=== PATIENT | male | born 1960 | race Caucasian/White ===

== ENCOUNTER 2017-07-18 12:35 | Emergency (ER) | payer BC, MEDICAID ==
--- NOTE | 2017-07-18 13:07 | EDM.PDOC ---
ED HPI GENERAL MEDICAL PROBLEM - General Chief Complaint: General Stated Complaint: WEAK Time Seen by Provider: 07/18/17 13:05 Source of Information: Reports: Patient History Limitations: Reports: Other (poor historian, no immediate access to records([place] patient)) - History of Present Illness INITIAL COMMENTS - FREE TEXT/NARRATIVE: 56 yo male presents with weakness, dizziness, and heart burn. Was seen in the clinic in [place] on Tuesday and was given an Rx for a PPI that he started on Tuesday. He has not gotten any relief of the heart burn, and now since taking the first dose of the PPI(unknown specific med), he has had the additional sx's. He has continued to take the med since Tuesday even though he has these SE's. Didn't call his clinic before coming here to the ER today. Is new in town from [place]. Denies vertigo. Hospitalized in the past only for pneumonia. Denies smoking, had one alcoholic drink today to "reduce the pain ". 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: Other (see below) (none) throat Pain Score (Numeric/FACES): 0 - Related Data Allergies Allergy/AdvReac Type Severity Reaction Status Date / Time No Known Allergies Allergy Verified 07/18/17 12:37 Home Meds: Home Meds FLUoxetine [PROzac] 40 mg PO DAILY 07/18/17 [History] Lisinopril 20 mg PO DAILY 07/18/17 [History] Minocycline [Minocin] 100 mg DAILY 07/18/17 [History] Naproxen 500 mg PO BID 07/18/17 [History] Omeprazole 20 mg PO DAILY 07/18/17 [History] buPROPion [Wellbutrin XL] 150 mg PO DAILY 07/18/17 [History] ED ROS GENERAL - Review of Systems Review Of Systems: See Below Constitutional: Reports: Malaise, Weakness HEENT: Reports: No Symptoms Respiratory: Reports: Shortness of Breath Cardiovascular: Reports: No Symptoms Endocrine: Reports: Fatigue GI/Abdominal: Reports: No Symptoms : Reports: No Symptoms Musculoskeletal: Reports: No Symptoms Skin: Reports: No Symptoms Psychiatric: Reports: No Symptoms ED EXAM, GENERAL - Physical Exam Exam: See Below Exam Limited By: No Limitations General Appearance: Alert, WD/WN, No Apparent Distress Eye Exam: Bilateral Eye: Normal Inspection, PERRL Ears: Normal External Exam, Normal Canal, Hearing Grossly Normal Ear Exam: Bilateral Ear: Auricle Normal, Canal Normal Nose: Normal Inspection, Normal Mucosa, No Blood Throat/Mouth: Normal Inspection, Normal Lips, Normal Oropharynx, Normal Voice, No Airway Compromise Head: Atraumatic, Normocephalic Neck: Normal Inspection, Supple, Non-Tender Respiratory/Chest: No Respiratory Distress, Lungs Clear, Normal Breath Sounds, No Accessory Muscle Use Cardiovascular: Regular Rate, Rhythm, No Edema GI/Abdominal: Normal Bowel Sounds, Soft, Non-Tender, No Distention Back Exam: Normal Inspection, Full Range of Motion. No: CVA Tenderness (R), CVA Tenderness (L) Extremities: Normal Inspection, Normal Range of Motion, Non-Tender, No Pedal Edema Neurological: Alert, Oriented, CN II-XII Intact, Normal Cognition, No Motor/ Sensory Deficits Psychiatric: Normal Affect, Normal Mood Skin Exam: Warm, Dry, Intact, Normal Color, No Rash Lymphatic: No Adenopathy EKG INTERPRETATION EKG Date: 07/18/17 Time: 12:55 Rhythm: NSR Rate (Beats/Min): 67 [place]: Normal P-Wave: Present QRS: Normal ST-T: Normal QT: Normal Comparison: NA - No Prior EKG Course - Vital Signs Text/Narrative:: Orthostats-negative Last Recorded V/S: Last Vital Signs Temp 36.8 C 07/18/17 12:35 Pulse 87 07/18/17 12:35 Resp 18 07/18/17 12:35 BP 123/81 07/18/17 12:35 Pulse Ox 100 07/18/17 12:35 Orthostatic Blood Pressure [ 117/69 Standing] Orthostatic Blood Pressure [ 122/90 Sitting] Orthostatic Blood Pressure [ 123/79 Supine] - Orders/Labs/Meds Orders: Active Orders 24 hr Category Date Time Status Orthostatic Vital Signs [RC] ASDIRECTED Care 07/18/17 13:16 Active DRUG SCREEN, URINE ALERE [URCHEM] Stat Lab 07/18/17 14:01 Received EKG 12 Lead [EK] Routine Ther 07/18/17 12:54 Ordered Labs: Laboratory Tests 07/18/17 07/18/17 07/18/17 Range/Units 13:30 13:30 13:30 WBC 7.2 (4.5-12.0) X10-3/uL RBC 4.69 (4.30-5.75) x10(6)uL Hgb 15.7 H (11.5-15.5) g/dL Hct 45.3 (30.0-51.3) % MCV 96.6 H (80-96) fL MCH 33.5 (27.7-33.6) pg MCHC 34.6 (32.2-35.4) g/dL RDW 13.6 (11.5-15.5) % Plt Count 271 (125-369) X10(3)uL Sodium 141 (135-145) mmol/L Potassium 4.1 (3.5-5.3) mmol/L Chloride 105 (100-110) mmol/L Carbon Dioxide 28 (23-29) mmol/L BUN 12 (5-20) mg/dL Creatinine 0.8 (0.6-1.3) mg/dL Est Cr Clr Drug Dosing 108.99 mL/min Estimated GFR (MDRD) > 60 (>60) BUN/Creatinine Ratio 15.0 (9-20) Glucose 92 (80-116) mg/dL Calcium 8.8 (8.6-10.2) mg/dL Total Bilirubin 0.4 (0.1-1.3) mg/dL AST 59 H (5-27) IU/L ALT 66 H (14-26) IU/L Alkaline Phosphatase 78 (56-112) IU/L Troponin I < 0.01 L (0.02-0.06) NG/ML Total Protein 7.0 (6.0-8.0) g/dL Albumin 3.7 (3.5-5.2) g/dL Globulin 3.3 g/dL Albumin/Globulin Ratio 1.1 Urine Color (YELLOW) Urine Appearance (CLEAR) Urine pH (5.0-6.5) Ur Specific Pauline (1.010-1.025) Urine Protein (NEGATIVE) mg/dL Urine Glucose (UA) (NEGATIVE) mg/dL Urine Ketones (NEGATIVE) mg/dL Urine Occult Blood (NEGATIVE) Urine Nitrite (NEGATIVE) Urine Bilirubin (NEGATIVE) Urine Urobilinogen (NEGATIVE) mg/dL Ur Leukocyte Esterase (NEGATIVE) Urine RBC (0) Urine WBC (0) Ethyl Alcohol (<0.01) % 07/18/17 07/18/17 Range/Units 13:30 14:01 WBC (4.5-12.0) X10-3/uL RBC (4.30-5.75) x10(6)uL Hgb (11.5-15.5) g/dL Hct (30.0-51.3) % MCV (80-96) fL MCH (27.7-33.6) pg MCHC (32.2-35.4) g/dL RDW (11.5-15.5) % Plt Count (125-369) X10(3)uL Sodium (135-145) mmol/L Potassium (3.5-5.3) mmol/L Chloride (100-110) mmol/L Carbon Dioxide (23-29) mmol/L BUN (5-20) mg/dL Creatinine (0.6-1.3) mg/dL Est Cr Clr Drug Dosing mL/min Estimated GFR (MDRD) (>60) BUN/Creatinine Ratio (9-20) Glucose (80-116) mg/dL Calcium (8.6-10.2) mg/dL Total Bilirubin (0.1-1.3) mg/dL AST (5-27) IU/L ALT (14-26) IU/L Alkaline Phosphatase (56-112) IU/L Troponin I (0.02-0.06) NG/ML Total Protein (6.0-8.0) g/dL Albumin (3.5-5.2) g/dL Globulin g/dL Albumin/Globulin Ratio Urine Color Yellow (YELLOW) Urine Appearance Clear (CLEAR) Urine pH 5.0 (5.0-6.5) Ur Specific Pauline 1.010 (1.010-1.025) Urine Protein Negative (NEGATIVE) mg/dL Urine Glucose (UA) Normal (NEGATIVE) mg/dL Urine Ketones Negative (NEGATIVE) mg/dL Urine Occult Blood Negative (NEGATIVE) Urine Nitrite Negative (NEGATIVE) Urine Bilirubin Negative (NEGATIVE) Urine Urobilinogen Normal (NEGATIVE) mg/dL Ur Leukocyte Esterase Small H (NEGATIVE) Urine RBC Not seen (0) Urine WBC Not seen (0) Ethyl Alcohol 0.32 H* (<0.01) % Meds: Medications Discontinued Medications Generic Name Dose Route Start Last Admin Trade Name Freq PRN Reason Stop Dose Admin Al Hydroxide/Mg Hydroxide 15 0 ml 07/18/17 13:17 07/18/17 14:10 ml/ Lidocaine HCl 15 ml PO 07/18/17 13:18 15 ml ONETIME ONE Administration Departure - Departure Time of Disposition: 14:20 Disposition: Home, Self-Care 01 Condition: Fair Clinical Impression: GERD (gastroesophageal reflux disease) Qualifiers: Esophagitis presence: with esophagitis Qualified Code(s): K21.0 - Gastro- esophageal reflux disease with esophagitis Alcohol intoxication Qualifiers: Complication of substance-induced condition: with unspecified complication Qualified Code(s): F10.929 - Alcohol use, unspecified with intoxication, unspecified Alcoholic hepatitis Qualifiers: Ascites presence: without ascites Qualified Code(s): K70.10 - Alcoholic hepatitis without ascites - Discharge Information Forms: ED Department Discharge - My Orders Last 24 Hours: My Active Orders 07/18/17 12:54 EKG 12 Lead [EK] Routine 07/18/17 13:16 Orthostatic Vital Signs [RC] ASDIRECTED 07/18/17 14:01 DRUG SCREEN, URINE ALERE [URCHEM] Stat - Assessment/Plan Last 24 Hours: My Active Orders 07/18/17 12:54 EKG 12 Lead [EK] Routine 07/18/17 13:16 Orthostatic Vital Signs [RC] ASDIRECTED 07/18/17 14:01 DRUG SCREEN, URINE ALERE [URCHEM] Stat
[2017-07-18] MEDS ORDERED: Alum Hydroxide/Mag Hydroxide 15 ML, Lidocaine 2% 15 ML PO ONE ×2 (13:17)
[2017-07-18 14:37] VITALS: BP 137/88
== END 2017-07-18 14:26 | disposition home or self-care (01) ==
LOC: FB.ED 12:35
DX: K21.9 Gastro-esophageal reflux disease without esophagitis (principal); K70.10 Alcoholic hepatitis without ascites; F10.129 Alcohol abuse with intoxication, unspecified; Z79.899 Other long term (current) drug therapy
CPT/HCPCS: 36415; 80053; 80305; 81001; 84484; 85027; 93005; 99285; A9270; G0480

== ENCOUNTER 2017-11-22 08:18 | Emergency (ER) | payer MEDICAID ==
[2017-11-22] MEDS ORDERED: Amoxicillin/Clavulanate K 875-125 MG Tab PO ONE (08:49)
[2017-11-22] MEDS ORDERED: Ibuprofen 600 MG Tab PO ONE (08:49)
--- NOTE | 2017-11-22 08:51 | EDM.PDOC ---
ED HPI GENERAL MEDICAL PROBLEM - General Chief Complaint: General Stated Complaint: TOOTH PAIN Time Seen by Provider: 11/22/17 08:26 Source of Information: Reports: Patient History Limitations: Reports: No Limitations - History of Present Illness INITIAL COMMENTS - FREE TEXT/NARRATIVE: 56 y.o. w m came to the ed due sever toothache after tooth repair a few days ago. Pt stated his filling fell out, it hurts more when he eats cold or hot food. No direct trauma, no N/V/D or any other acute medical issues. 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 Right Upper Oral/Mouth Pain Score (Numeric/FACES): 9 - Related Data Allergies Allergy/AdvReac Type Severity Reaction Status Date / Time No Known Allergies Allergy Verified 07/18/17 12:37 Home Meds: Home Meds FLUoxetine [PROzac] 40 mg PO DAILY 07/18/17 [History] Lisinopril 20 mg PO DAILY 07/18/17 [History] Minocycline [Minocin] 100 mg DAILY 07/18/17 [History] Omeprazole 20 mg PO DAILY 07/18/17 [History] Amoxicillin/Potassium Clav [Augmentin 875-125 Tablet] 1 each PO BID #20 tablet 11/22/17 [Rx] Past Medical History Cardiovascular History: Reports: High Cholesterol, Hypertension Respiratory History: Reports: Pneumonia, Recurrent Gastrointestinal History: Reports: GERD Musculoskeletal History: Reports: Back Pain, Chronic Psychiatric History: Reports: Depression Endocrine/Metabolic History: Reports: Obesity/BMI 30+ - Past Surgical History GI Surgical History: Reports: Hernia, Abdominal Musculoskeletal Surgical History: Reports: Carpal Tunnel Other Musculoskeletal Surgeries/Procedures:: bilat carpal tunnel surgery Social & Family History - Family History Family Medical History: Noncontributory - Tobacco Use Smoking Status *Q: Current Every Day Smoker Years of Tobacco use: 38 Packs/Tins Daily: 0.4 - Caffeine Use Caffeine Use: Reports: Coffee - Alcohol Use Days Per Week of Alcohol Use: 4 Number of Drinks Per Day: 3 Total Drinks Per Week: 12 - Recreational Drug Use Recreational Drug Use: No ED ROS GENERAL - Review of Systems Review Of Systems: See Below Constitutional: Reports: No Symptoms HEENT: Reports: Other (toothache) Respiratory: Reports: No Symptoms Cardiovascular: Reports: No Symptoms Endocrine: Reports: No Symptoms GI/Abdominal: Reports: No Symptoms : Reports: No Symptoms Musculoskeletal: Reports: No Symptoms Skin: Reports: No Symptoms Neurological: Reports: No Symptoms Psychiatric: Reports: No Symptoms Hematologic/Lymphatic: Reports: No Symptoms Immunologic: Reports: No Symptoms ED EXAM, GENERAL - Physical Exam Exam: See Below Exam Limited By: No Limitations General Appearance: Alert, WD/WN, Mild Distress Eye Exam: Bilateral Eye: Normal Inspection Ears: Normal External Exam, Normal Canal Ear Exam: Bilateral Ear: Auricle Normal Nose: Normal Inspection, Normal Mucosa Throat/Mouth: Normal Lips, No Airway Compromise, Other (poor dentition) Head: Atraumatic, Normocephalic Neck: Normal Inspection, Supple, Non-Tender, Full Range of Motion Respiratory/Chest: No Respiratory Distress, Lungs Clear, Normal Breath Sounds Cardiovascular: Normal Peripheral Pulses, Regular Rate, Rhythm, No Edema, No Gallop Peripheral Pulses: 1+: Radial (R) GI/Abdominal: Normal Bowel Sounds, Soft, Non-Tender, No Organomegaly (Male) Exam: Deferred Rectal (Males) Exam: Deferred Back Exam: Normal Inspection, Full Range of Motion Extremities: Normal Inspection, Normal Range of Motion, Non-Tender Neurological: Alert, Oriented, CN II-XII Intact, Normal Cognition, Normal Gait Psychiatric: Normal Affect, Normal Mood Skin Exam: Warm, Dry, Intact, Normal Color, No Rash Lymphatic: No Adenopathy Course - Vital Signs Text/Narrative:: 56 y.o. w m came to the ed due sever toothache after tooth repair a few days ago. Pt stated his filling fell out, it hurts more when he eats cold or hot food. No direct trauma, no N/V/D or any other acute medical issues. BP 153/91 pulse 103 temp 36.7 RR 16 Pulse ox 97% on RA PE: Poor dentition with #3 tooth decayed. Gingivitis Impression: Poor dentition with #3 tooth decayed. Gingivitis Tx: Augmentin, Motrin Reexam: Improved Plan: D/C with instructions Last Recorded V/S: Last Vital Signs Temp 36.8 C 11/22/17 09:25 Pulse 77 11/22/17 09:25 Resp 16 11/22/17 09:25 BP 152/82 H 11/22/17 09:25 Pulse Ox 100 11/22/17 09:25 - Orders/Labs/Meds Meds: Medications Discontinued Medications Generic Name Dose Route Start Last Admin Trade Name Bright PRN Reason Stop Dose Admin Amoxicillin/Clavulanate Potassium 1 tab 11/22/17 08:49 11/22/17 09:04 Augmentin 875 Mg/125 Mg PO 11/22/17 08:50 1 tab ONETIME ONE Administration Ibuprofen 600 mg 11/22/17 08:49 11/22/17 09:04 Motrin PO 11/22/17 08:50 600 mg ONETIME ONE Administration Departure - Departure Time of Disposition: 08:51 Disposition: Home, Self-Care 01 Condition: Good Clinical Impression: Toothache, Acute gingivitis, Poor dentition - Discharge Information Prescriptions: Amoxicillin/Potassium Clav [Augmentin 875-125 Tablet] 1 each PO BID #20 tablet Instructions: Tooth Injuries, [id number] Referrals: PCP,Not In Area [Primary Care Provider] - Forms: ED Department Discharge, ED Return to Work/School Form Additional Instructions: Please apply mouths wash after teeth cleaning, take Motrin and the ABx as recommended, please f/u with a dentist a.s.a.p, please come back to the ED if your symptoms get worse acutely
[2017-11-22 09:48] VITALS: BP 152/82
== END 2017-11-22 09:45 | disposition home or self-care (01) ==
LOC: FB.ED 08:18
DX: K05.00 Acute gingivitis, plaque induced (principal); I10 Essential (primary) hypertension; K00.7 Teething syndrome; E78.00 Pure hypercholesterolemia, unspecified; E66.9 Obesity, unspecified; K21.9 Gastro-esophageal reflux disease without esophagitis; F17.210 Nicotine dependence, cigarettes, uncomplicated; Z79.899 Other long term (current) drug therapy; Z79.2 Long term (current) use of antibiotics
CPT/HCPCS: 99282; A9270

== ENCOUNTER 2018-05-01 13:23 | Inpatient (IN) | payer MEDICAID, OTHER ==
[2018-05-01 14:18] LABS: ACETAMINOPHEN < 2 ug/mL (10-30)
[2018-05-01] MEDS ORDERED: Pantoprazole 80 MG in Sodium Chloride 0.9% 100 ML IV ONE (14:37)
[2018-05-01] MEDS ORDERED: Sodium Chloride 0.9% 1,000 ML IV SCH (14:45)
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
[2018-05-01] MEDS ORDERED: LORazepam 1 MG Tab PO SCH (16:15)
[2018-05-01] MEDS ORDERED: LORazepam 2 MG/ML SDV IV SCH (16:15)
[2018-05-01] MEDS ORDERED: Nicotine 14 MG/24 Hr Patch TRDERM SCH (16:30)
[2018-05-01] MEDS: Pantoprazole 40 MG Tab.CR PO SCH ×2 (16:52→17:49)
[2018-05-01] MEDS: Folic Acid 1 MG Tab PO SCH (16:52)
[2018-05-01] MEDS: Multivitamin Tab PO SCH (16:53)
[2018-05-01] MEDS: Thiamine 100 MG Tab PO SCH (16:53)
[2018-05-01] MEDS: Ketorolac 30 MG/ML SDV IVPUSH PRN (16:59)
[2018-05-01] MEDS: Dextrose 5%-0.9% NaCl 1,000 ML IV SCH (17:59)
[2018-05-01] MEDS: Acetaminophen 325 MG Tab PO PRN (20:11)
[2018-05-02] MEDS: Dextrose 5%-0.9% NaCl 1,000 ML IV SCH ×2 (01:42→01:43)
[2018-05-02] MEDS: Ketorolac 30 MG/ML SDV IVPUSH PRN (01:51)
[2018-05-02] MEDS: Pantoprazole 40 MG Tab.CR PO SCH (05:07)
[2018-05-02] MEDS ORDERED: Magnesium Oxide 400 MG Tab PO ONE (07:05)
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
--- NOTE | 2018-05-02 07:43 | PCM.DCSUM1 ---
Discharge Summary - Hospital Course Free Text/Narrative:: Date of admission: 05/01/2018 Date of discharge: 05/02/2018 Admission diagnosis: Acute intoxication, history of closed head injury. Question rhabdomyolysis. Discharge diagnosis: Acute intoxication now sober, no physical evidence of head trauma, no evidence of rhabdomyolysis. Alcohol abuse, recommended detox. Patient declined. Consults: None Procedures: Urban scanning in the emergency department with CT scan reveals a negative head CT, negative thoracic, negative lumbar, negative cervical CT. History of present illness: Patient is a 57-year-old gentleman with a history of alcoholism having been through detox and treatment in the past. He presented to the emergency department with a story of having been at work on , becoming very dehydrated, and when he got home falling and striking the posterior occiput on a table. Reports of loss of consciousness which was of unknown length. No bruising or swelling on the posterior occiput. He cannot account for the time between then and now. He presents intoxicated with a blood alcohol of 0.4. Complaints of a severe headache and body aches. Was admitted to the hospital for further monitoring and treatment, rule out rhabdomyolysis, closed head injury. Hospital course: Patient was stable overnight. Was sober on the day of discharge. Refused referral to detox which was recommended. Condition at discharge: Patient denied chest pain, shortness breath, nausea or vomiting. He was able to void without difficulty. He continued to have a mild headache that was significantly improved over prior. Body aches were gone. Vital signs were stable and head was atraumatic, normocephalic, pupils equally round and reactive. Patient did have some occasional fasciculations of the face muscles and a little added edema under the left eye. No tongue fasciculations. Extremities show no tremors. No liver flap. Lungs were clear to auscultation, heart sounds were regular with normal rate and rhythm, no murmurs. - Discharge Data Discharge Date: 05/02/18 Discharge Disposition: Home, Self-Care 01 Condition: Good - Discharge Diagnosis/Problem(s) (1) Alcohol intoxication SNOMED Code(s): 23783552 ICD Code: F10.929 - ALCOHOL USE, UNSPECIFIED WITH INTOXICATION, UNSPECIFIED Status: Acute Current Visit: No Problem Details: The patient is now sober. He tells me that he does not have a drinking problem and has no intention of going to treatment or detox. He's just going to go home and not drink anymore. I strongly recommended detox at this point. Patient refused. Will be discharged home. Qualifiers: Complication of substance-induced condition: with unspecified complication Qualified Code(s): F10.929 - Alcohol use, unspecified with intoxication, unspecified (2) Closed head injury SNOMED Code(s): 254811704907 ICD Code: S09.90XA - UNSPECIFIED INJURY OF HEAD, INITIAL ENCOUNTER Status: Acute Current Visit: Yes Problem Details: After 5 days, no evidence of bruising to the posterior occiput and a negative head CT, I think it very unlikely the patient has a significant closed head injury. He may have postconcussive pain but more likely his pain is related to drinking. Tylenol for pain. Return to work when he is ready. I don't see any reason he couldn't go back to work as long as he's not drinking. (3) HTN (hypertension) SNOMED Code(s): 64758818 ICD Code: I10 - ESSENTIAL (PRIMARY) HYPERTENSION Status: Acute Current Visit: Yes Problem Details: Discharge on previous home dose of lisinopril. (4) Muscle pain SNOMED Code(s): 88427430 ICD Code: M79.1 - MYALGIA Status: Acute Current Visit: Yes Problem Details: CK back in normal range. Muscle aches improved/resolved. (5) DVT prophylaxis SNOMED Code(s): 159426857, 044813225 ICD Code: MND3850 - Status: Acute Current Visit: Yes Problem Details: Patient is ambulatory. (6) Acute urinary retention SNOMED Code(s): 748916463 ICD Code: R33.8 - OTHER RETENTION OF URINE Status: Acute Current Visit: Yes Problem Details: After 1 straight cath for 600 cc, patient able to void without difficulty. - Patient Summary/Data Consults: Consultations 05/01/18 16:10 Consult to [employer] [CONS] Routine Comment: Physician Instructions: consult for /[facility] social work Respiratory Care Assess and Treatment [CONS] Routine Comment: Physician Instructions: - Patient Instructions Diet: Heart Healthy Diet, No Alcoholic Beverages Other/Special Instructions: You may return to work on 05/03/2018. No alcoholic beverages. Tylenol for headache, return if desirous of detox. Follow- up with primary care at the clinic in 1 week. We will schedule this appointment. - Discharge Plan Prescriptions/Med Rec: Multivitamins [Tab-A-Keyur] 1 tab PO DAILY #100 tablet Thiamine [Vitamin B-1] 100 mg PO DAILY #30 tablet Home Medications: Home Meds FLUoxetine [PROzac] 40 mg PO DAILY 07/18/17 [History] Lisinopril 20 mg PO DAILY 07/18/17 [History] Minocycline [Minocin] 100 mg DAILY 07/18/17 [History] Omeprazole 20 mg PO DAILY 07/18/17 [History] Acetaminophen [Tylenol] 650 mg PO Q4H PRN tablet 05/02/18 [Rx] Folic Acid 1 mg PO DAILY tablet 05/02/18 [Rx] Multivitamins [Tab-A-Keyur] 1 tab PO DAILY #100 tablet 05/02/18 [Rx] Thiamine [Vitamin B-1] 100 mg PO DAILY #30 tablet 05/02/18 [Rx] Patient Handouts: Concussion, Adult, Alcohol Intoxication, Fall Prevention in Hospitals, Adult, Steps to Quit Smoking, Venous Thromboembolism Prevention Forms: ED Department Discharge Referrals: PCP,None [Primary Care Provider] - - Discharge Summary/Plan Comment DC Time >30 min.: Yes (Pt had court appt this am, note given re: hosp dates.) - Patient Data Vitals - Most Recent: Last Vital Signs Temp 36.2 C 05/02/18 05:32 Pulse 85 05/01/18 16:15 Resp 18 05/02/18 05:32 BP 144/89 H 05/02/18 05:32 Pulse Ox 100 05/02/18 05:32 Weight - Most Recent: 91.314 kg I&O - Last 24 hours: Intake & Output 05/01/18 05/02/18 05/02/18 22:59 06:59 14:59 Intake Total 1525 1578 Output Total 0 450 Balance 1525 1128 Lab Results - Last 24 hrs: Laboratory Results - last 24 hr 05/01/18 05/01/18 05/01/18 Range/Units 13:40 13:40 13:40 WBC 6.6 (4.5-12.0) X10-3/uL RBC 4.52 (4.30-5.75) x10(6)uL Hgb 15.0 (11.5-15.5) g/dL Hct 43.8 (30.0-51.3) % MCV 97.0 H (80-96) fL MCH 33.3 (27.7-33.6) pg MCHC 34.3 (32.2-35.4) g/dL RDW 12.5 (11.5-15.5) % Plt Count 301 (125-369) X10(3)uL MPV 7.6 (7.4-10.4) fL Neut % (Auto) 54.5 (46-82) % Lymph % (Auto) 35.1 (13-37) % [place] % (Auto) 9.3 (4-12) % Eos % (Auto) 0 L (1.0-5.0) % Baso % (Auto) 1 (0-2) % Neut # (Auto) 3.7 (1.6-8.3) # Lymph # (Auto) 2.3 (0.6-5.0) # [place] # (Auto) 0.6 (0.0-1.3) # Eos # (Auto) 0.0 (0.0-0.8) # Baso # (Auto) 0.0 (0.0-0.2) # PT (8.7-11.1) INR (0.89-1.13) D-Dimer, Quantitative (0.0-0.59) mg/LFEU Sodium 143 (135-145) mmol/L Potassium 3.4 L (3.5-5.3) mmol/L Chloride 105 (100-110) mmol/L Carbon Dioxide 29 (21-32) mmol/L BUN 11 (7-18) mg/dL Creatinine 0.7 (0.70-1.30) mg/dL Est Cr Clr Drug Dosing 107.60 mL/min Estimated GFR (MDRD) > 60 (>60) BUN/Creatinine Ratio 15.7 (9-20) Glucose 91 (80-116) mg/dL Calcium 8.4 L (8.6-10.2) mg/dL Phosphorus (2.6-4.6) mg/dL Magnesium (1.8-2.5) mg/dL Total Bilirubin 0.3 (0.1-1.3) mg/dL AST 73 H (5-25) IU/L ALT 116 H (12-36) U/L Alkaline Phosphatase 73 (56-112) IU/L Creatine Kinase (60-160) IU/L Troponin I < 0.017 L (<0.017-0.056) ng/mL NT-Pro-B Natriuret Pep (<=125) pg/mL Total Protein 6.9 (6.0-8.0) g/dL Albumin 3.5 (3.5-5.2) g/dL Globulin 3.4 g/dL Albumin/Globulin Ratio 1.0 Amylase (25-115) U/L TSH, Ultra Sensitive 0.71 (0.36-3.74) IU/mL Urine Color (YELLOW) Urine Appearance (CLEAR) Urine pH (5.0-6.5) Ur Specific [place] (1.010-1.025) Urine Protein (NEGATIVE) mg/dL Urine Glucose (UA) (NEGATIVE) mg/dL Urine Ketones (NEGATIVE) mg/dL Urine Occult Blood (NEGATIVE) Urine Nitrite (NEGATIVE) Urine Bilirubin (NEGATIVE) Urine Urobilinogen (NEGATIVE) mg/dL Ur Leukocyte Esterase (NEGATIVE) Urine RBC (0) Urine WBC (0) Ur Squamous Epith Cells (NS,R,O) Urine Bacteria (NS) Salicylates (2.8-20.0) mg/dL Urine Opiates Screen (NEGATIVE) Ur Oxycodone Screen (NEGATIVE) Ur Propoxyphene Screen (NEGATIVE) Acetaminophen (10-30) ug/mL Ur Barbituates Screen (NEGATIVE) Ur Tricyclics Screen (NEGATIVE) Ur Phencyclidine Scrn (NEGATIVE) Ur Amphetamine Screen (NEGATIVE) Urine MDMA Screen (NEGATIVE) U Benzodiazepines Scrn (NEGATIVE) U Cocaine Metab Screen (NEGATIVE) U Marijuana (THC) Screen (NEGATIVE) Ethyl Alcohol (<0.03) % 05/01/18 05/01/18 05/01/18 Range/Units 13:40 13:40 13:40 WBC (4.5-12.0) X10-3/uL RBC (4.30-5.75) x10(6)uL Hgb (11.5-15.5) g/dL Hct (30.0-51.3) % MCV (80-96) fL MCH (27.7-33.6) pg MCHC (32.2-35.4) g/dL RDW (11.5-15.5) % Plt Count (125-369) X10(3)uL MPV (7.4-10.4) fL Neut % (Auto) (46-82) % Lymph % (Auto) (13-37) % [place] % (Auto) (4-12) % Eos % (Auto) (1.0-5.0) % Baso % (Auto) (0-2) % Neut # (Auto) (1.6-8.3) # Lymph # (Auto) (0.6-5.0) # [place] # (Auto) (0.0-1.3) # Eos # (Auto) (0.0-0.8) # Baso # (Auto) (0.0-0.2) # PT 10.4 (8.7-11.1) INR 1.07 (0.89-1.13) D-Dimer, Quantitative 0.77 H (0.0-0.59) mg/LFEU Sodium (135-145) mmol/L Potassium (3.5-5.3) mmol/L Chloride (100-110) mmol/L Carbon Dioxide (21-32) mmol/L BUN (7-18) mg/dL Creatinine (0.70-1.30) mg/dL Est Cr Clr Drug Dosing mL/min Estimated GFR (MDRD) (>60) BUN/Creatinine Ratio (9-20) Glucose (80-116) mg/dL Calcium (8.6-10.2) mg/dL Phosphorus (2.6-4.6) mg/dL Magnesium (1.8-2.5) mg/dL Total Bilirubin (0.1-1.3) mg/dL AST (5-25) IU/L ALT (12-36) U/L Alkaline Phosphatase (56-112) IU/L Creatine Kinase (60-160) IU/L Troponin I (<0.017-0.056) ng/mL NT-Pro-B Natriuret Pep 233 H (<=125) pg/mL Total Protein (6.0-8.0) g/dL Albumin (3.5-5.2) g/dL Globulin g/dL Albumin/Globulin Ratio Amylase (25-115) U/L TSH, Ultra Sensitive (0.36-3.74) IU/mL Urine Color (YELLOW) Urine Appearance (CLEAR) Urine pH (5.0-6.5) Ur Specific [place] (1.010-1.025) Urine Protein (NEGATIVE) mg/dL Urine Glucose (UA) (NEGATIVE) mg/dL Urine Ketones (NEGATIVE) mg/dL Urine Occult Blood (NEGATIVE) Urine Nitrite (NEGATIVE) Urine Bilirubin (NEGATIVE) Urine Urobilinogen (NEGATIVE) mg/dL Ur Leukocyte Esterase (NEGATIVE) Urine RBC (0) Urine WBC (0) Ur Squamous Epith Cells (NS,R,O) Urine Bacteria (NS) Salicylates (2.8-20.0) mg/dL Urine Opiates Screen (NEGATIVE) Ur Oxycodone Screen (NEGATIVE) Ur Propoxyphene Screen (NEGATIVE) Acetaminophen (10-30) ug/mL Ur Barbituates Screen (NEGATIVE) Ur Tricyclics Screen (NEGATIVE) Ur Phencyclidine Scrn (NEGATIVE) Ur Amphetamine Screen (NEGATIVE) Urine MDMA Screen (NEGATIVE) U Benzodiazepines Scrn (NEGATIVE) U Cocaine Metab Screen (NEGATIVE) U Marijuana (THC) Screen (NEGATIVE) Ethyl Alcohol 0.40 H* (<0.03) % 05/01/18 05/01/18 05/01/18 Range/Units 13:40 14:00 14:00 WBC (4.5-12.0) X10-3/uL RBC (4.30-5.75) x10(6)uL Hgb (11.5-15.5) g/dL Hct (30.0-51.3) % MCV (80-96) fL MCH (27.7-33.6) pg MCHC (32.2-35.4) g/dL RDW (11.5-15.5) % Plt Count (125-369) X10(3)uL MPV (7.4-10.4) fL Neut % (Auto) (46-82) % Lymph % (Auto) (13-37) % [place] % (Auto) (4-12) % Eos % (Auto) (1.0-5.0) % Baso % (Auto) (0-2) % Neut # (Auto) (1.6-8.3) # Lymph # (Auto) (0.6-5.0) # [place] # (Auto) (0.0-1.3) # Eos # (Auto) (0.0-0.8) # Baso # (Auto) (0.0-0.2) # PT (8.7-11.1) INR (0.89-1.13) D-Dimer, Quantitative (0.0-0.59) mg/LFEU Sodium (135-145) mmol/L Potassium (3.5-5.3) mmol/L Chloride (100-110) mmol/L Carbon Dioxide (21-32) mmol/L BUN (7-18) mg/dL Creatinine (0.70-1.30) mg/dL Est Cr Clr Drug Dosing mL/min Estimated GFR (MDRD) (>60) BUN/Creatinine Ratio (9-20) Glucose (80-116) mg/dL Calcium (8.6-10.2) mg/dL Phosphorus (2.6-4.6) mg/dL Magnesium 2.1 (1.8-2.5) mg/dL Total Bilirubin (0.1-1.3) mg/dL AST (5-25) IU/L ALT (12-36) U/L Alkaline Phosphatase (56-112) IU/L Creatine Kinase 193 H (60-160) IU/L Troponin I (<0.017-0.056) ng/mL NT-Pro-B Natriuret Pep (<=125) pg/mL Total Protein (6.0-8.0) g/dL Albumin (3.5-5.2) g/dL Globulin g/dL Albumin/Globulin Ratio Amylase 54 (25-115) U/L TSH, Ultra Sensitive (0.36-3.74) IU/mL Urine Color (YELLOW) Urine Appearance (CLEAR) Urine pH (5.0-6.5) Ur Specific [place] (1.010-1.025) Urine Protein (NEGATIVE) mg/dL Urine Glucose (UA) (NEGATIVE) mg/dL Urine Ketones (NEGATIVE) mg/dL Urine Occult Blood (NEGATIVE) Urine Nitrite (NEGATIVE) Urine Bilirubin (NEGATIVE) Urine Urobilinogen (NEGATIVE) mg/dL Ur Leukocyte Esterase (NEGATIVE) Urine RBC (0) Urine WBC (0) Ur Squamous Epith Cells (NS,R,O) Urine Bacteria (NS) Salicylates 3.2 (2.8-20.0) mg/dL Urine Opiates Screen (NEGATIVE) Ur Oxycodone Screen (NEGATIVE) Ur Propoxyphene Screen (NEGATIVE) Acetaminophen < 2 L (10-30) ug/mL Ur Barbituates Screen (NEGATIVE) Ur Tricyclics Screen (NEGATIVE) Ur Phencyclidine Scrn (NEGATIVE) Ur Amphetamine Screen (NEGATIVE) Urine MDMA Screen (NEGATIVE) U Benzodiazepines Scrn (NEGATIVE) U Cocaine Metab Screen (NEGATIVE) U Marijuana (THC) Screen (NEGATIVE) Ethyl Alcohol (<0.03) % 05/01/18 05/01/18 05/01/18 Range/Units 14:00 14:25 14:25 WBC (4.5-12.0) X10-3/uL RBC (4.30-5.75) x10(6)uL Hgb (11.5-15.5) g/dL Hct (30.0-51.3) % MCV (80-96) fL MCH (27.7-33.6) pg MCHC (32.2-35.4) g/dL RDW (11.5-15.5) % Plt Count (125-369) X10(3)uL MPV (7.4-10.4) fL Neut % (Auto) (46-82) % Lymph % (Auto) (13-37) % [place] % (Auto) (4-12) % Eos % (Auto) (1.0-5.0) % Baso % (Auto) (0-2) % Neut # (Auto) (1.6-8.3) # Lymph # (Auto) (0.6-5.0) # [place] # (Auto) (0.0-1.3) # Eos # (Auto) (0.0-0.8) # Baso # (Auto) (0.0-0.2) # PT (8.7-11.1) INR (0.89-1.13) D-Dimer, Quantitative (0.0-0.59) mg/LFEU Sodium (135-145) mmol/L Potassium (3.5-5.3) mmol/L Chloride (100-110) mmol/L Carbon Dioxide (21-32) mmol/L BUN (7-18) mg/dL Creatinine (0.70-1.30) mg/dL Est Cr Clr Drug Dosing mL/min Estimated GFR (MDRD) (>60) BUN/Creatinine Ratio (9-20) Glucose (80-116) mg/dL Calcium (8.6-10.2) mg/dL Phosphorus 3.2 (2.6-4.6) mg/dL Magnesium (1.8-2.5) mg/dL Total Bilirubin (0.1-1.3) mg/dL AST (5-25) IU/L ALT (12-36) U/L Alkaline Phosphatase (56-112) IU/L Creatine Kinase (60-160) IU/L Troponin I (<0.017-0.056) ng/mL NT-Pro-B Natriuret Pep (<=125) pg/mL Total Protein (6.0-8.0) g/dL Albumin (3.5-5.2) g/dL Globulin g/dL Albumin/Globulin Ratio Amylase (25-115) U/L TSH, Ultra Sensitive (0.36-3.74) IU/mL Urine Color Yellow (YELLOW) Urine Appearance Clear (CLEAR) Urine pH 7.0 H (5.0-6.5) Ur Specific [place] 1.005 L (1.010-1.025) Urine Protein Negative (NEGATIVE) mg/dL Urine Glucose (UA) Normal (NEGATIVE) mg/dL Urine Ketones Negative (NEGATIVE) mg/dL Urine Occult Blood Negative (NEGATIVE) Urine Nitrite Negative (NEGATIVE) Urine Bilirubin Negative (NEGATIVE) Urine Urobilinogen Normal (NEGATIVE) mg/dL Ur Leukocyte Esterase Negative (NEGATIVE) Urine RBC 0-5 (0) Urine WBC 0-5 (0) Ur Squamous Epith Cells Occasional (NS,R,O) Urine Bacteria Rare H (NS) Salicylates (2.8-20.0) mg/dL Urine Opiates Screen Negative (NEGATIVE) Ur Oxycodone Screen Negative (NEGATIVE) Ur Propoxyphene Screen Negative (NEGATIVE) Acetaminophen (10-30) ug/mL Ur Barbituates Screen Negative (NEGATIVE) Ur Tricyclics Screen Negative (NEGATIVE) Ur Phencyclidine Scrn Negative (NEGATIVE) Ur Amphetamine Screen Negative (NEGATIVE) Urine MDMA Screen Negative (NEGATIVE) U Benzodiazepines Scrn Negative (NEGATIVE) U Cocaine Metab Screen Negative (NEGATIVE) U Marijuana (THC) Screen Negative (NEGATIVE) Ethyl Alcohol (<0.03) % 05/02/18 05/02/18 05/02/18 Range/Units 06:30 06:30 06:30 WBC 4.7 (4.5-12.0) X10-3/uL RBC 4.22 L (4.30-5.75) x10(6)uL Hgb 14.1 (11.5-15.5) g/dL Hct 41.2 (30.0-51.3) % MCV 97.5 H (80-96) fL MCH 33.4 (27.7-33.6) pg MCHC 34.3 (32.2-35.4) g/dL RDW 12.4 (11.5-15.5) % Plt Count 228 (125-369) X10(3)uL MPV 8.1 (7.4-10.4) fL Neut % (Auto) 60.4 (46-82) % Lymph % (Auto) 23.0 (13-37) % [place] % (Auto) 14.7 H (4-12) % Eos % (Auto) 1 (1.0-5.0) % Baso % (Auto) 1 (0-2) % Neut # (Auto) 2.8 (1.6-8.3) # Lymph # (Auto) 1.1 (0.6-5.0) # [place] # (Auto) 0.7 (0.0-1.3) # Eos # (Auto) 0.0 (0.0-0.8) # Baso # (Auto) 0.1 (0.0-0.2) # PT (8.7-11.1) INR (0.89-1.13) D-Dimer, Quantitative (0.0-0.59) mg/LFEU Sodium 140 (135-145) mmol/L Potassium 4.0 (3.5-5.3) mmol/L Chloride 104 (100-110) mmol/L Carbon Dioxide 29 (21-32) mmol/L BUN 8 (7-18) mg/dL Creatinine 0.7 (0.70-1.30) mg/dL Est Cr Clr Drug Dosing 123.12 mL/min Estimated GFR (MDRD) > 60 (>60) BUN/Creatinine Ratio 11.4 (9-20) Glucose 111 (80-116) mg/dL Calcium 8.4 L (8.6-10.2) mg/dL Phosphorus 3.4 (2.6-4.6) mg/dL Magnesium 1.6 L (1.8-2.5) mg/dL Total Bilirubin 0.7 (0.1-1.3) mg/dL AST 68 H (5-25) IU/L ALT 107 H (12-36) U/L Alkaline Phosphatase 79 (56-112) IU/L Creatine Kinase (60-160) IU/L Troponin I (<0.017-0.056) ng/mL NT-Pro-B Natriuret Pep (<=125) pg/mL Total Protein 6.2 (6.0-8.0) g/dL Albumin 3.2 L (3.5-5.2) g/dL Globulin 3.0 g/dL Albumin/Globulin Ratio 1.1 Amylase (25-115) U/L TSH, Ultra Sensitive (0.36-3.74) IU/mL Urine Color (YELLOW) Urine Appearance (CLEAR) Urine pH (5.0-6.5) Ur Specific [place] (1.010-1.025) Urine Protein (NEGATIVE) mg/dL Urine Glucose (UA) (NEGATIVE) mg/dL Urine Ketones (NEGATIVE) mg/dL Urine Occult Blood (NEGATIVE) Urine Nitrite (NEGATIVE) Urine Bilirubin (NEGATIVE) Urine Urobilinogen (NEGATIVE) mg/dL Ur Leukocyte Esterase (NEGATIVE) Urine RBC (0) Urine WBC (0) Ur Squamous Epith Cells (NS,R,O) Urine Bacteria (NS) Salicylates (2.8-20.0) mg/dL Urine Opiates Screen (NEGATIVE) Ur Oxycodone Screen (NEGATIVE) Ur Propoxyphene Screen (NEGATIVE) Acetaminophen (10-30) ug/mL Ur Barbituates Screen (NEGATIVE) Ur Tricyclics Screen (NEGATIVE) Ur Phencyclidine Scrn (NEGATIVE) Ur Amphetamine Screen (NEGATIVE) Urine MDMA Screen (NEGATIVE) U Benzodiazepines Scrn (NEGATIVE) U Cocaine Metab Screen (NEGATIVE) U Marijuana (THC) Screen (NEGATIVE) Ethyl Alcohol < 0.03 (<0.03) % 05/02/18 Range/Units 06:30 WBC (4.5-12.0) X10-3/uL RBC (4.30-5.75) x10(6)uL Hgb (11.5-15.5) g/dL Hct (30.0-51.3) % MCV (80-96) fL MCH (27.7-33.6) pg MCHC (32.2-35.4) g/dL RDW (11.5-15.5) % Plt Count (125-369) X10(3)uL MPV (7.4-10.4) fL Neut % (Auto) (46-82) % Lymph % (Auto) (13-37) % [place] % (Auto) (4-12) % Eos % (Auto) (1.0-5.0) % Baso % (Auto) (0-2) % Neut # (Auto) (1.6-8.3) # Lymph # (Auto) (0.6-5.0) # [place] # (Auto) (0.0-1.3) # Eos # (Auto) (0.0-0.8) # Baso # (Auto) (0.0-0.2) # PT (8.7-11.1) INR (0.89-1.13) D-Dimer, Quantitative (0.0-0.59) mg/LFEU Sodium (135-145) mmol/L Potassium (3.5-5.3) mmol/L Chloride (100-110) mmol/L Carbon Dioxide (21-32) mmol/L BUN (7-18) mg/dL Creatinine (0.70-1.30) mg/dL Est Cr Clr Drug Dosing mL/min Estimated GFR (MDRD) (>60) BUN/Creatinine Ratio (9-20) Glucose (80-116) mg/dL Calcium (8.6-10.2) mg/dL Phosphorus (2.6-4.6) mg/dL Magnesium (1.8-2.5) mg/dL Total Bilirubin (0.1-1.3) mg/dL AST (5-25) IU/L ALT (12-36) U/L Alkaline Phosphatase (56-112) IU/L Creatine Kinase 158 (60-160) IU/L Troponin I (<0.017-0.056) ng/mL NT-Pro-B Natriuret Pep (<=125) pg/mL Total Protein (6.0-8.0) g/dL Albumin (3.5-5.2) g/dL Globulin g/dL Albumin/Globulin Ratio Amylase (25-115) U/L TSH, Ultra Sensitive (0.36-3.74) IU/mL Urine Color (YELLOW) Urine Appearance (CLEAR) Urine pH (5.0-6.5) Ur Specific [place] (1.010-1.025) Urine Protein (NEGATIVE) mg/dL Urine Glucose (UA) (NEGATIVE) mg/dL Urine Ketones (NEGATIVE) mg/dL Urine Occult Blood (NEGATIVE) Urine Nitrite (NEGATIVE) Urine Bilirubin (NEGATIVE) Urine Urobilinogen (NEGATIVE) mg/dL Ur Leukocyte Esterase (NEGATIVE) Urine RBC (0) Urine WBC (0) Ur Squamous Epith Cells (NS,R,O) Urine Bacteria (NS) Salicylates (2.8-20.0) mg/dL Urine Opiates Screen (NEGATIVE) Ur Oxycodone Screen (NEGATIVE) Ur Propoxyphene Screen (NEGATIVE) Acetaminophen (10-30) ug/mL Ur Barbituates Screen (NEGATIVE) Ur Tricyclics Screen (NEGATIVE) Ur Phencyclidine Scrn (NEGATIVE) Ur Amphetamine Screen (NEGATIVE) Urine MDMA Screen (NEGATIVE) U Benzodiazepines Scrn (NEGATIVE) U Cocaine Metab Screen (NEGATIVE) U Marijuana (THC) Screen (NEGATIVE) Ethyl Alcohol (<0.03) % Med Orders - Current: Current Medications Acetaminophen (Tylenol) 650 mg PO Q4H PRN PRN Reason: Pain (Mild 1-3)/fever Last Admin: 05/01/18 20:11 Dose: 650 mg Fluoxetine HCl (Prozac) 40 mg PO DAILY [facility] Folic Acid (Folic Acid) 1 mg PO DAILY [facility] Last Admin: 05/01/18 16:52 Dose: 1 mg Sodium Chloride (Normal Saline) 1,000 mls @ 400 mls/hr IV ASDIRECTED [facility] Last Admin: 05/01/18 15:00 Dose: 400 mls/hr Dextrose/Sodium Chloride (Dextrose 5%-Normal Saline) 1,000 mls @ 125 mls/hr IV ASDIRECTED [facility] Last Admin: 05/02/18 01:43 Dose: 125 mls/hr Ketorolac Tromethamine (Toradol) 30 mg IVPUSH Q6H PRN PRN Reason: Pain (moderate 4-6) Last Admin: 05/02/18 01:51 Dose: 30 mg Lisinopril (Prinivil) 5 mg PO DAILY IVY Lorazepam (Ativan) 0 mg IV ASDIRECTED IVY; Protocol Lorazepam (Ativan) 0 mg PO ASDIRECTED IVY; Protocol Multivitamins/Minerals/Vitamin C (Tab-A-Keyur) 1 tab PO DAILY IVY Last Admin: 05/01/18 16:53 Dose: 1 tab Nicotine (Habitrol) 14 mg TRDERM Q24H IVY Last Admin: 05/01/18 16:53 Dose: 14 mg Pantoprazole Sodium (Protonix) 40 mg PO 0600 [facility] Last Admin: 05/02/18 05:07 Dose: 40 mg Thiamine HCl (Vitamin B-1) 100 mg PO DAILY [facility] Last Admin: 05/01/18 16:53 Dose: 100 mg Discontinued Medications Pantoprazole Sodium 80 mg/ (Sodium Chloride) 100 mls @ 200 mls/hr IV .BOLUS ONE Stop: 05/01/18 15:06 Last Admin: 05/01/18 15:15 Dose: 200 mls/hr Magnesium Oxide (Magnesium Oxide) 800 mg PO ONETIME ONE Stop: 05/02/18 07:06
--- NOTE | 2018-05-02 08:00 | CT ---
INDICATION: Head trauma four days ago, hit back of head, headache. CT CERVICAL SPINE: Spiral 2.5 mm axial sections were obtained through the cervical spine without contrast, 05/01/2018. No comparisons were available. Total exam DLP = 440.28 mGy-cm. Mild degenerative changes are noted at the atlantoodontoid joint. Bridging hyperostotic changes are noted at the C3-4 level posteriorly and at C5- 6 to a greater extent anteriorly, bridging the disk space. Minimal narrowing of the disk space is noted with suggestion of some bulging of the disk at C5-6. More severe hypertrophic degenerative changes and narrowing of disk spaces are noted at C5-6 and C6-7. Narrowing of the neural foramina is noted, most prominently on the right at C5- 6 and C6-7 but also at C5-6 on the right. Otherwise, vertebral body and disk heights were maintained. Prevertebral space appeared to be normal. A definite fracture or dislocation was not identified. The odontoid and the atlas appear to be intact. Mild hypertrophic degenerative changes are noted at the uncinate joints of C3-4 and C5-6 on the right and C6-7 more prominently on the right. Degenerative changes and disk disease are also suggested at C7-T1. IMPRESSION: 1. No acute fracture or dislocation. 2. Osteoarthritis and disk disease, as noted above, with impingement on neural foramina, also as noted above. Report was called to Dr. Arce at 1520 hours on 05/01/2018. [facility]
[2018-05-02] MEDS: Folic Acid 1 MG Tab PO SCH (08:08)
[2018-05-02] MEDS: Acetaminophen 325 MG Tab PO PRN (08:09)
[2018-05-02] MEDS: Multivitamin Tab PO SCH (08:09)
[2018-05-02] MEDS: Thiamine 100 MG Tab PO SCH (08:09)
--- NOTE | 2018-05-02 08:10 | CT ---
INDICATION: Pain, fall, injury. CT THORACIC SPINE: Spiral 2.5 mm axial sections were obtained through the thoracic spine with sagittal and coronal reconstructions. Total exam DLP = 915.05 mGy-cm. Degenerative changes and disk disease are noted at C7-T1 with bridging hyperostotic changes noted at T5 and below anteriorly off the vertebral bodies and most severe at T6-7, T7-8, and below - through T11-12 with a lesser degree of bridging hyperostotic change at T12-L1. Vertebral body heights are fairly well preserved. Disk heights were also fairly well preserved without a definite fracture or dislocation identified. An appearance of demineralization raises question of osteomalacia - correlate clinically. A minimal dextroconvex scoliosis of the mid thoracic spine is noted. Incidentally, no mass lesions were seen in the mediastinum. Minimal scarring or possibly minimal patchy pneumonia is seen at the left lower lobe of the lung. IMPRESSION: 1. Degenerative changes noted in the mid to lower thoracic spine with hypertrophic lipping. 2. No definite acute fracture or dislocation. 3. An appearance of demineralization raising question of osteomalacia - correlate clinically. 4. Minimal emphysematous changes in the lungs with no gross consolidating pneumonia but with question of minimal patchy pneumonia and/or atelectasis versus fibrosis at the left lower lobe. 5. Minimal scoliosis thoracic spine. Report was called to Dr. Arce on 05/01/2018 at 1520 hours. [facility]
[2018-05-02 08:14] VITALS: BP 160/88
--- NOTE | 2018-05-02 08:20 | CT ---
INDICATION: Lumbar pain after a fall. CT LUMBOSACRAL SPINE: Spiral 2.5 mm axial sections were obtained through the lumbosacral spine with sagittal and coronal reconstructions. Total exam DLP = 651.47 mGy-cm. A dextroconvex scoliosis of the lower lumbar spine is noted, producing a tilt of the spine to the left. Bridging hyperostotic changes are noted anteriorly and laterally throughout the lumbosacral spine but are most severe at L3-4, L4-5, and L5-S1. Vacuum disk phenomena are noted at L2-3, L3-4, and L4-5, as well as L5-S1. Disk spaces are narrowed at L1 through L5-S1 but most severely at L3-4 and L4- 5. Somewhat narrowed neural foramina are noted at the L2 through S1 levels, most severe at L4-5 and L5-S1. A definite fracture or dislocation was not identified. Vertebral elements appear to be well-aligned. Sacroiliac joints are intact, although degenerative changes are present, right greater than left. A very minimal degree of spinal stenosis is noted at L5-S1 with moderate spinal stenosis at L4-5 and to a slightly greater extent at L3-4. IMPRESSION: 1. No definite acute fracture or dislocation. 2. Degenerative changes and disk disease L1 through S1 with narrowed neural foramina and spinal stenosis, as noted above. Report was called to Dr. Arce on 05/01/2018 at 1520 hours. [facility]
[2018-05-02] MEDS ORDERED: Lisinopril 5 MG Tab PO SCH (09:00)
[2018-05-02] MEDS ORDERED: FLUoxetine 20 MG Cap PO SCH (09:00)
== END 2018-05-02 11:35 | disposition home or self-care (01) | DRG 897 ==
LOC: FB.ED 13:23 → FB.ICU 15:49
PROVIDERS: ADMIT Family Medicine; ATTEND Family Medicine
DX: F10.129 Alcohol abuse with intoxication, unspecified (principal); Y90.2 Blood alcohol level of 40-59 mg/100 ml; W19.XXXA Unspecified fall, initial encounter; Y93.9 Activity, unspecified; R33.8 Other retention of urine; S09.90XA Unspecified injury of head, initial encounter; M79.1 Myalgia; I10 Essential (primary) hypertension; R51 Headache
CPT/HCPCS: 36415; 51701; 70450; 71045; 72125; 72128; 72131; 80053; 80305; 81001; 82150; 82550; 83735; 83880; 84100; 84443; 84484; 85025; 85379; 85610; 93005; 96365; 99285; A9270-GY; C9113; G0480; J1885; J7030

== ENCOUNTER 2018-07-26 20:56 | Emergency (ER) | payer MEDICAID, OTHER ==
[2018-07-26] MEDS ORDERED: Ketorolac 30 MG/ML SDV IVPUSH ONE (21:06)
[2018-07-26] MEDS ORDERED: Sodium Chloride 0.9% 10 ML Syringe FLUSH PRN (21:06)
[2018-07-26] MEDS ORDERED: Ondansetron 4 MG/2 ML SDV IVPUSH ONE (21:06)
--- NOTE | 2018-07-26 21:10 | EDM.PDOC ---
ED HPI GENERAL MEDICAL PROBLEM - General Time Seen by Provider: 07/26/18 21:00 Source of Information: Reports: Patient, Police History Limitations: Reports: Combative/Threatening - History of Present Illness INITIAL COMMENTS - FREE TEXT/NARRATIVE: Sunday was looking for medical clearance before going back to snf. Apparently was found [place] in the park, and resisted the police. He was tased 3 times around abdominal area and into the button at least twice. He admits that he has been drinking almost nonstop. Complaints no be able to eat today has had several episodes of emesis, and has had constipation for more than 2 weeks. He has a history of hypertension but quit taking his medications recently after losing his job. - Related Data Allergies Allergy/AdvReac Type Severity Reaction Status Date / Time No Known Allergies Allergy Verified 07/26/18 22:03 Home Meds: Home Meds . [Unable to Verify Home Med List] 07/26/18 [History] Past Medical History Cardiovascular History: Reports: High Cholesterol, Hypertension Respiratory History: Reports: Pneumonia, Recurrent Gastrointestinal History: Reports: GERD Musculoskeletal History: Reports: Back Pain, Chronic Neurological History: Reports: Concussion Other Neuro History: concussion this admission Psychiatric History: Reports: Depression Endocrine/Metabolic History: Reports: Obesity/BMI 30+ Dermatologic History: Reports: Other (See Below) Other Dermatologic History: Rosacia- take the metocylin for. - Infectious Disease History Infectious Disease History: Reports: Chicken Pox - Past Surgical History HEENT Surgical History: Reports: Oral Surgery Other HEENT Surgeries/Procedures: Pt had a tooth removed upper right Dec 4 GI Surgical History: Reports: Hernia, Abdominal Musculoskeletal Surgical History: Reports: Carpal Tunnel Other Musculoskeletal Surgeries/Procedures:: bilat carpal tunnel surgery Social & Family History - Family History Family Medical History: Noncontributory - Caffeine Use Caffeine Use: Reports: Coffee ED ROS GENERAL - Review of Systems Review Of Systems: ROS reveals no pertinent complaints other than HPI. ED EXAM, GI/ABD - Physical Exam Exam: See Below Exam Limited By: No Limitations General Appearance: Alert, WD/WN Eyes: Bilateral: Normal Appearance, EOMI Ears: Normal External Exam, Normal Canal, Hearing Grossly Normal, Normal TMs Respiratory/Chest: No Respiratory Distress Cardiovascular: Normal Peripheral Pulses GI/Abdominal Exam: Normal Bowel Sounds, No Organomegaly, Other (Tender RUQ). No : Distended Back Exam: Other (Skin abrasions,back) EKG INTERPRETATION EKG Date: 07/26/18 [place]: Normal Course - Vital Signs Text/Narrative:: Declined blood work.CT shows gallbladder distension,nonspecific - Orders/Labs/Meds Orders: Active Orders 24 hr Category Date Time Status EKG Documentation Completion [RC] ASDIRECTED Care 07/26/18 21:06 Active Abdomen Pelvis w Cont [CT] Stat Exams 07/26/18 21:06 Taken Sodium Chloride 0.9% [Normal Saline] 1,000 ml Med 07/26/18 21:15 Active IV ASDIRECTED Sodium Chloride 0.9% [Saline Flush] Med 07/26/18 21:06 Active 10 ml FLUSH ASDIRECTED PRN Peripheral IV Insertion Adult [OM.PC] Routine Oth 07/26/18 21:06 Ordered EKG 12 Lead [EK] Routine Ther 07/26/18 21:05 Ordered Medication Orders Sodium Chloride (Normal Saline) 1,000 mls @ 999 mls/hr IV ASDIRECTED IVY Last Admin: 07/26/18 21:25 Dose: 999 mls/hr Sodium Chloride (Saline Flush) 10 ml FLUSH ASDIRECTED PRN PRN Reason: Keep Vein Open Last Admin: 07/26/18 21:25 Dose: 10 ml Meds: Medications Generic Name Dose Route Start Last Admin Trade Name Freq PRN Reason Stop Dose Admin Sodium Chloride 1,000 mls @ 999 mls/hr 07/26/18 21:15 07/26/18 21:25 Normal Saline IV 999 mls/hr ASDIRECTED IVY Administration Sodium Chloride 10 ml 07/26/18 21:06 07/26/18 21:25 Saline Flush FLUSH 10 ml ASDIRECTED PRN Administration Keep Vein Open Discontinued Medications Generic Name Dose Route Start Last Admin Trade Name Freq PRN Reason Stop Dose Admin Iopamidol 75 ml 07/26/18 21:11 07/26/18 21:38 Isovue-370 (76%) IV 07/26/18 21:12 75 ml ONETIME ONE Administration Ketorolac Tromethamine 30 mg 07/26/18 21:06 07/26/18 21:42 Toradol IVPUSH 07/26/18 21:07 30 mg ONETIME ONE Administration Ondansetron HCl 4 mg 07/26/18 21:06 07/26/18 21:40 Zofrjames IVPUSH 07/26/18 21:07 4 mg ONETIME ONE Administration Departure - Departure Time of Disposition: 22:16 Disposition: Home, Self-Care 01 Condition: Good Clinical Impression: Abdominal pain Alcohol intoxication Qualifiers: Complication of substance-induced condition: with unspecified complication Qualified Code(s): F10.929 - Alcohol use, unspecified with intoxication, unspecified - Discharge Information - Problem List & Annotations (1) Abdominal pain SNOMED Code(s): 24320063 Code(s): R10.9 - UNSPECIFIED ABDOMINAL PAIN Status: Acute Qualifiers: Abdominal location: right upper quadrant Qualified Code(s): R10.11 - Right upper quadrant pain (2) Alcohol intoxication SNOMED Code(s): 03219404 Code(s): F10.929 - ALCOHOL USE, UNSPECIFIED WITH INTOXICATION, UNSPECIFIED Status: Acute Qualifiers: Complication of substance-induced condition: with unspecified complication Qualified Code(s): F10.929 - Alcohol use, unspecified with intoxication, unspecified (3) HTN (hypertension) SNOMED Code(s): 32412144 Code(s): I10 - ESSENTIAL (PRIMARY) HYPERTENSION Status: Acute Annotation/ Comment:: Discharge on previous home dose of lisinopril. Qualifiers: Hypertension type: essential hypertension Qualified Code(s): I10 - Essential (primary) hypertension - Problem List Review Problem List Initiated/Reviewed/Updated: Yes - My Orders Last 24 Hours: My Active Orders 07/26/18 21:05 EKG 12 Lead [EK] Routine 07/26/18 21:06 EKG Documentation Completion [RC] ASDIRECTED Abdomen Pelvis w Cont [CT] Stat Sodium Chloride 0.9% [Saline Flush] 10 ml FLUSH ASDIRECTED PRN Peripheral IV Insertion Adult [OM.PC] Routine 07/26/18 21:15 Sodium Chloride 0.9% [Normal Saline] 1,000 ml IV ASDIRECTED - Assessment/Plan Last 24 Hours: My Active Orders 07/26/18 21:05 EKG 12 Lead [EK] Routine 07/26/18 21:06 EKG Documentation Completion [RC] ASDIRECTED Abdomen Pelvis w Cont [CT] Stat Sodium Chloride 0.9% [Saline Flush] 10 ml FLUSH ASDIRECTED PRN Peripheral IV Insertion Adult [OM.PC] Routine 07/26/18 21:15 Sodium Chloride 0.9% [Normal Saline] 1,000 ml IV ASDIRECTED Plan: DC to law enforcement. Recommend follow up with PCP on the gall bladder
[2018-07-26] MEDS ORDERED: Iopamidol 755 Mg/ML 75 ML Bottle IV ONE (21:11)
[2018-07-26] MEDS ORDERED: Sodium Chloride 0.9% 1,000 ML IV SCH (21:15)
[2018-07-26 22:25] VITALS: BP 132/80
== END 2018-07-26 22:40 | disposition home or self-care (01) ==
LOC: FB.ED 20:56
DX: F10.120 Alcohol abuse with intoxication, uncomplicated (principal); I10 Essential (primary) hypertension; E66.9 Obesity, unspecified
CPT/HCPCS: 74177; 93005; 96361; 96374; 96375; 99284; J1885; J2405; J7030; J7050; Q9967